=== PATIENT | male | born 1965 | race Two or more races ===

== ENCOUNTER 2025-03-09 16:51 | Inpatient (IN) | payer OTHER ==
[~2025-03-09] VITALS: Ht 172.7 cm; Wt 61.0 kg
[2025-03-09 18:55] LABS: PLATELET COUNT (AUTO) 366 K/uL (152-348); RED BLOOD CELL COUNT(AUTO) 4.07 MIL/uL (4.06-5.63); RED CELL DISTRIBUTION WIDTH 13.0 % (12.1-16.2); WHITE BLOOD COUNT (AUTO) 7.1 K/uL (3.6-10.2)
[2025-03-09 19:07] LABS: ETHANOL < 3 MG/DL (0-10)
[2025-03-09 19:09] LABS: ASPARTATE AMINOTRANSFERASE 11 U/L (15-37); CREATININE 0.6 mg/dL (0.6-1.3); SODIUM SERUM 132 mmol/L (136-145); TOTAL PROTEIN, SERUM 7.4 g/dL (6.4-8.2); UREA NITROGEN, BLOOD 15 mg/dL (7-18)
[2025-03-09] MEDS ORDERED: IV D5W-0.45% NS +20 KCL 1,000 ML IV ONE (20:26)
[2025-03-09] MEDS: IV D5W-0.45% NS +20 KCL 1,000 ML IV ONE (20:27)
[2025-03-09] MEDS ORDERED: ETOMIDATE 20 MG/10 ML VIAL ONE (20:50)
[2025-03-09] MEDS: ETOMIDATE 20 MG/10 ML VIAL IV ONE (21:27)
[2025-03-09 21:53] LABS: *BILIRUBIN,URIN 1+ (NEGATIVE); *BLOOD, URINE NEGATIVE (NEGATIVE); *CLARITY,URINE CLEAR (CLEAR); *COLOR,URINE DARK YELLOW (YELLOW); *KETONES,URINE 2+ (NEGATIVE); *PROTEIN,URINE 1+ (NEGATIVE); *UROBILINOGEN,URINE 1.0 E.U./dl (NORMAL); LEUKOCYTE ESTERASE ,URINE NEGATIVE (NEGATIVE); NITRITE, URINE NEGATIVE (NEGATIVE); UGLUCOSE NEGATIVE (NEGATIVE)
[2025-03-09] MEDS ORDERED: LORAZEPAM 2 MG/1 ML VIAL IM PRN (22:00)
[2025-03-09] MEDS ORDERED: ONDANSETRON 4 MG/2 ML VIAL IV PRN (22:00)
[2025-03-09] MEDS ORDERED: REMEDY ESSENTIAL ZINC PASTE 113 GM TP PRN (22:00)
[2025-03-09] MEDS ORDERED: MAGNESIUM HYDROXIDE 30 ML LIQUID UDC PO PRN (22:00)
[2025-03-09 22:01] LABS: SQUAMOUS EPITHELIAL CELL,UR NONE SEEN /HPF (NONE SEEN)
[2025-03-09 22:07] LABS: *AMPHETAMINE, URINE POSITIVE (NEGATIVE); *BARBITURATE, URINE NEGATIVE (NEGATIVE); *BENZODIAZEPINE, URINE NEGATIVE (NEGATIVE); *CANNABINOID, URINE NEGATIVE (NEGATIVE); *COCCAINE, URINE NEGATIVE (NEGATIVE); *OPIATE, URINE NEGATIVE (NEGATIVE); *PHENCYCLIDINE SCREEN,URINE NEGATIVE (NEGATIVE); FENTANYL, URINE NEGATIVE (NEGATIVE)
[2025-03-09] MEDS ORDERED: PIPERACILLIN/TAZOBACTAM/D5W 50 ML IV ONE (22:43)
[2025-03-09] MEDS: PIPERACILLIN SODIUM/TAZOBACTAM 3.375 G in IV DEXTROSE 5% 50 ML IV ONE (22:48)
[2025-03-09 23:01] VITALS: BP 117/81
[2025-03-10] MEDS ORDERED: PIPERACILLIN SODIUM/TAZOBACTAM 3.375 G in IV DEXTROSE 5% 50 ML IV SCH
[2025-03-10 00:11] VITALS: BP 121/87; TEMP 97.5; O2SAT 100
[2025-03-10] MEDS: IV NS 1000 ML 1,000 ML IV PRN (00:19)
[2025-03-10] MEDS: POTASSIUM CHLORIDE 50 ML IV SCH (00:19)
[2025-03-10] MEDS ORDERED: MORPHINE SULFATE 2 MG/1 ML DISP.SYRIN IV PRN (01:00)
[2025-03-10] MEDS: MORPHINE SULFATE 4 MG/1 ML DISP.SYRIN IV PRN (01:36)
[2025-03-10] MEDS ORDERED: PIPERACILLIN/TAZOBACTAM/D5W 50 ML IV ONE (06:12)
[2025-03-10] MEDS: PIPERACILLIN SODIUM/TAZOBACTAM 3.375 G in IV DEXTROSE 5% 50 ML IV SCH (06:34)
[2025-03-10 06:36] LABS: PLATELET COUNT (AUTO) 392 K/uL (152-348); RED BLOOD CELL COUNT(AUTO) 3.90 MIL/uL (4.06-5.63); RED CELL DISTRIBUTION WIDTH 12.9 % (12.1-16.2); WHITE BLOOD COUNT (AUTO) 6.1 K/uL (3.6-10.2)
[2025-03-10 07:00] LABS: ASPARTATE AMINOTRANSFERASE 9 U/L (15-37); CREATININE 0.6 mg/dL (0.6-1.3); SODIUM SERUM 141 mmol/L (136-145); TOTAL PROTEIN, SERUM 6.4 g/dL (6.4-8.2); UREA NITROGEN, BLOOD 8 mg/dL (7-18)
[2025-03-10 07:08] VITALS: BP 120/81; TEMP 97.5; O2SAT 100
[2025-03-10] MEDS: PANTOPRAZOLE SODIUM 40 MG VIAL IV SCH (08:18)
[2025-03-10] MEDS: POTASSIUM CHLORIDE 20 MEQ TAB.PRT.SR PO ONE (09:51)
[2025-03-10] MEDS ORDERED: POTASSIUM CHLORIDE 50 ML IV SCH (10:00)
[2025-03-10 11:11] VITALS: BP 130/67; TEMP 98.4; O2SAT 94
[2025-03-10] MEDS: PIPERACILLIN SODIUM/TAZOBACTAM 3.375 G in IV DEXTROSE 5% 100 ML IV SCH (14:04)
[2025-03-10 15:04] VITALS: BP 113/65; TEMP 98.6; O2SAT 100
[2025-03-10] MEDS: ACETAMINOPHEN 325 MG TABLET PO PRN (15:15)
[2025-03-10] MEDS: TAMSULOSIN HCL 0.4 MG CAP.SR.24H PO SCH (16:42)
[2025-03-11 06:09] VITALS: BP 113/80; TEMP 98.8; O2SAT 100
[2025-03-11 06:44] LABS: PLATELET COUNT (AUTO) 426 K/uL (152-348); RED BLOOD CELL COUNT(AUTO) 3.80 MIL/uL (4.06-5.63); RED CELL DISTRIBUTION WIDTH 13.2 % (12.1-16.2); WHITE BLOOD COUNT (AUTO) 5.9 K/uL (3.6-10.2)
[2025-03-11 07:00] LABS: CREATININE 0.6 mg/dL (0.6-1.3); SODIUM SERUM 142 mmol/L (136-145); UREA NITROGEN, BLOOD 7 mg/dL (7-18)
[2025-03-11 08:29] VITALS: BP 129/88
[2025-03-11] MEDS: POTASSIUM CHLORIDE 20 MEQ TAB.PRT.SR PO ONE ×2 (11:21→14:14)
[2025-03-11 12:00] VITALS: BP 151/75; TEMP 98.9; O2SAT 99
[2025-03-11] MEDS ORDERED: AMOX-430 PO (14:05)
[2025-03-11] MEDS ORDERED: TAMS-3 PO (14:05)
[2025-03-12] MEDS ORDERED: PANTOPRAZOLE SODIUM 40 MG TABLET.DR PO SCH (07:00)
== END 2025-03-11 14:50 | disposition home or self-care (01) | DRG 254 ==
LOC: ER 16:58 → MEDSURG3 23:26
PROVIDERS: ADMIT Nurse Practitioner Acute Care; ATTEND Nurse Practitioner Acute Care
PROC: 0DCP7ZZ Extirpation of Matter from Rectum, Via Natural or Artificial Opening (ICD-10-PCS; principal; 2025-03-09)
PROC: 0DJD8ZZ Inspection of Lower Intestinal Tract, Via Natural or Artificial Opening Endoscopic (ICD-10-PCS; principal; 2025-03-09)
DX: T18.5XXA Foreign body in anus and rectum, initial encounter (principal); G92.8 Other toxic encephalopathy; K56.609 Unspecified intestinal obstruction, unspecified as to partial versus complete obstruction; F22 Delusional disorders; E87.6 Hypokalemia; W44.E3XA Non-magnetic metal toy entering into or through a natural orifice, initial encounter; Y93.89 Activity, other specified; Y92.89 Other specified places as the place of occurrence of the external cause; R33.9 Retention of urine, unspecified; F10.20 Alcohol dependence, uncomplicated; F19.10 Other psychoactive substance abuse, uncomplicated
CPT/HCPCS: 36415; 70450; 71045; 84443; 85025; A4606; G0378; G0480; J2270; J2470; J2543; J3480; J3490; J7040